=== PATIENT | female | born 1935 | race Two or more races ===

== ENCOUNTER 2018-06-02 08:44 | Emergency (ER) | payer OTHER ==
[~2018-06-02] VITALS: Ht 170.2 cm; Wt 68.5 kg
== END 2018-06-02 11:45 | disposition home or self-care (01) ==
LOC: ER 08:44
DX: S60.212A Contusion of left wrist, initial encounter (principal); S60.222A Contusion of left hand, initial encounter; W18.39XA Other fall on same level, initial encounter; Y93.89 Activity, other specified; Y92.098 Other place in other non-institutional residence as the place of occurrence of the external cause; Y99.8 Other external cause status

== ENCOUNTER 2018-07-17 08:38 | Emergency (ER) | payer OTHER ==
[~2018-07-17] VITALS: Ht 175.3 cm; Wt 74.8 kg
[2018-07-17] MEDS ORDERED: DICLOFENAC SODI50 MG PO (09:55)
== END 2018-07-17 10:00 | disposition home or self-care (01) ==
LOC: ER 08:38
DX: M79.651 Pain in right thigh (principal)